=== PATIENT | female | born 1955 | race Caucasian/White ===

== ENCOUNTER → 2025-01-26 08:44 | Outpatient (REF) | payer OTHER, SELFPAY | LOC: HWWDC 08:44 | PROVIDERS: ATTENDING PHYSICIAN Family Medicine | DX: Z12.31 Encounter for screening mammogram for malignant neoplasm of breast (principal) | CPT/HCPCS: 77063; 77067 ==

== ENCOUNTER 2025-09-29 11:22 | Emergency (ER) | payer OTHER, SELFPAY ==
[2025-09-29 11:24] VITALS: BP 150/69
[2025-09-29 12:00] VITALS: BP 130/62
[2025-09-29 12:54] VITALS: BP 130/62; BMI 26.0
[2025-09-29 13:00] VITALS: BP 128/59
[2025-09-29 13:00] LABS: Hematocrit 35.6 % (37.0-47.0); Hemoglobin 11.7 g/dL (12.0-16.0); Mean Corp Hgb Conc. 32.9 g/dL (33.0-37.0); Mean Corpuscular Volume 93.2 fL (81.0-99.0); Nucleated Red Blood Cells % 0 %; Platelet Count 251 10^3/uL (130-400); Red Cell Dist. Width 12.6 % (11.5-14.5)
[2025-09-29 13:20] LABS: ALT (SGPT) 19 U/L (0-35); AST (SGOT) 26 U/L (14-36); Albumin 4.4 g/dl (3.5-5.0); Alkaline Phosphatase 57 U/L (38-126); Blood Urea Nitrogen 29 mg/dl (7-17); Calcium 9.6 mg/dl (8.4-10.2); Carbon Dioxide 27 mmol/L (22-30); Chloride 104 mmol/L (98-107); Estimated Creatinine Clearance 67 ml/min; Glucose 100 mg/dl (70-99); Magnesium 1.6 mg/dl (1.6-2.3); Potassium 4.4 mmol/L (3.5-5.1); Sodium 137 mmol/L (135-145); Total Protein 7.0 g/dl (6.3-8.2); eGFR > 60.00
--- NOTE | 2025-09-29 13:34 | ED.GENMED ---
History of Present Illness
General
Chief Complaint: Heart Rate Problem
Source: patient
Exam Limitations: none
Time Seen by Provider: 09/29/25 11:58
History of Present Illness
History of Present Illness:
Note:
CHIEF COMPLAINT(S)
Palpitations and inability to sleep starting at 3:30 AM.
HISTORY OF PRESENT ILLNESS
The patient is a 70-year-old female who presented with palpitations that began in the middle of the night, prompting her to stay awake from approximately 3:30 AM. The patient described previous episodes but stated they have never lasted as long. She
reported feeling normal at the time of presentation, albeit with a slight flutter experienced while in the facility. The patient has not been diagnosed with any specific arrhythmia previously and has never seen a camera engineer for these symptoms.
Following a conversation with her family doctor, it was recommended that she visit the emergency department for evaluation due to her persistent symptoms.
PAST MEDICAL AND SURGICAL HISTORY
- History of skin cancer.
- Hip replacement surgery.
- Hypertension.
- Hypercholesterolemia.
REVIEW OF SYSTEMS
- Cardiovascular: Palpitations noted, no history of heart attack.
- Neurological: Difficulty sleeping due to palpitations.
PHYSICAL EXAM
General: Alert, no acute distress.
Skin: Warm, dry.
Head: Normocephalic, atraumatic.
Neck: Supple, trachea midline.
Eyes, Ears, Nose, Mouth, and Throat: Oral mucosa moist.
Cardiovascular: Normal peripheral perfusion, no edema, heart rate is 54 bpm, normal electrocardiogram.
Respiratory: Respirations are non-labored, lungs clear to auscultation.
Gastrointestinal: Abdomen nondistended.
Back: Normal range of motion, normal alignment.
Musculoskeletal: Normal range of motion, normal strength.
Neurological: Alert and oriented to person, place, time, and situation, no focal neurological deficit observed.
Psychiatric: Cooperative, appropriate mood and affect.
PLAN
- Comprehensive laboratory tests to check electrolytes, kidney function, and other potential arrhythmia markers.
- Electrocardiogram monitoring while in the facility.
- Referring to cardiology for potential Holter monitor evaluation to assess heart rhythm over an extended period.
DIFFERENTIAL DIAGNOSIS
The Differential Diagnosis includes, in no particular order and is not limited to:
1. Benign palpitations.
2. Atrial fibrillation.
3. Supraventricular tachycardia.
4. Premature ventricular contractions.
5. Anxiety-induced palpitations.
6. Hyperthyroidism.
7. Anemia.
8. Electrolyte imbalances.
9. Medication side effects.
10. Structural heart disease (if further symptoms arise).
EKG
My independent EKG interpretation is:
- Time of EKG: Not specified
- Rhythm: Normal sinus rhythm
- Heart rate: 58 beats per minute
- Start: Normal
- Intervals: Normal
- ST segment changes: None observed
- T wave inversions: Not mentioned
- Arrhythmias: None observed
Disposition:
SUMMARY OF ENCOUNTER
A 70-year-old female presented to the emergency department with episodes of palpitations that prompted her to stay awake from 3:30 AM. She has experienced similar symptoms in the past, though never for as long. Upon presentation, she was stable with
a blood pressure of 130/62 mmHg. Her palpitations were evaluated through blood tests and an electrocardiogram (EKG). She remained in normal sinus rhythm during telemetry monitoring in the emergency department.
DISPOSITION
Discharge
ASSESSMENT
The patient presented with palpitations that may require further cardiovascular evaluation through ambulatory monitoring.
PLAN
The patient is advised to follow up with a camera engineer for possible Holter monitor evaluation to assess her heart rhythm over an extended period.
INDEPENDENT REVIEW OF LABS AND INTERPRETATION OF TESTS
- My independent review of the CBC shows a mild anemia with a hemoglobin level of 11.7.
- My independent review of the CMP is normal.
- My independent EKG interpretation is a normal sinus rhythm.
PATIENT EDUCATION AND COUNSELING
The patient was informed about the non-emergency nature of her symptoms based on current findings. She was counseled on the importance of follow-up with cardiology to explore her symptoms further through potential continuous ambulatory monitoring.
FOLLOW-UP INSTRUCTIONS
Please follow up with a camera engineer as soon as possible for further evaluation and potential Holter monitoring.
MEDICATION RECONCILIATION
No new medications were prescribed or administered during this visit.
MEDICAL DECISION MAKING
- Number and Complexity of Problems Addressed: Chronic conditions affecting care include history of skin cancer, hypertension, hypercholesterolemia, and past episodes of palpitations. Differential diagnoses considered included benign palpitations,
atrial fibrillation, supraventricular tachycardia, premature ventricular contractions, anxiety-induced palpitations, hyperthyroidism, anemia, electrolyte imbalances, medication side effects, and structural heart disease.
- Data:
Category 1: I independently interpreted the EKG which showed normal sinus rhythm. Reviewed laboratory tests include CBC indicating mild anemia and a normal CMP.
- Risk: Consideration of Admission/Observation: Escalation of care including admission/observation was considered given the complexity and risk of the patients presenting complaint. However, ultimately, I feel the patient is safe for outpatient
management with close follow-up. Reasoning: Work-up reassuring, does not reveal any acute life/organ-threatening processes, and patients symptoms are well-controlled upon reevaluation; reexamination is reassuring, vitals are stable, patient is
agreeable with discharge, and reliable for follow-up.
DIAGNOSIS
- Palpitations, unspecified (R00.2)
- Anemia, unspecified (D64.9)
Past History
Social History
Tobacco: Non-smoker
Personal:
Living: with family
Phy Exam
Physical Exam
Physical Exam:
.
Course
Orders/Labs/Results
Orders:
Orders
09/29/25 11:23
EKG [Electrocardiogram (*1)] Urgent
Reason for Study: Palpitations
EKG- Treatment ONCE
09/29/25 12:52
Complete Blood Count/With Diff Urgent
Comprehensive Metabolic Panel Urgent
Magnesium Urgent
TSH Urgent
Abnormal Lab Results
09/29/25
12:52
RBC 3.82 L 10^6/uL
(4.20-5.40)
Hgb 11.7 L g/dL
(12.0-16.0)
Hct 35.6 L %
(37.0-47.0)
MCHC 32.9 L g/dL
(33.0-37.0)
BUN 29 H mg/dl
(7-17)
Glucose 100 H mg/dl
(70-99)
09/29/25 12:52
09/29/25 12:52
Vital Signs
Initial and Last Documented VS:
Initial Vital Signs
Temp Pulse Resp BP Pulse Ox
98.2 F 56 16 150/69 98
09/29/25 11:24 09/29/25 11:24 09/29/25 11:24 09/29/25 11:24 09/29/25 11:24
Last Documented Vital Signs
Temp Pulse Resp BP Pulse Ox
98.2 F 55 18 130/62 96
09/29/25 11:24 09/29/25 12:54 09/29/25 12:54 09/29/25 12:54 09/29/25 12:54
*Pulse Oximetry
SaO2: 96
Oxygen Mode of Delivery: Room air
Patient hypoxic: no
*Critical Care Note
Total Time (30-74mins, 75-104mins- exclusive of procedures): Not Applicable
ED Attending Note
-
Portions of this chart may have been created with voice recognition software.� Occasional wrong word or��sound alike� substitutions may have occurred due to the inherent limitations of voice recognition software.
Discharge Plan
Departure
Patient Disposition: Home (Routine Discharge)
Date of Disposition: 09/29/25
Time of Disposition: 13:35
Patient with high blood pressure during this ER visit?: No
Discharge Problem:
Heart palpitations
Instructions: Palpitations (DC)
Prescriptions:
No Action
metoprolol succinate 100 MG tablet extended release 24 hr
100 mg PO DAILY
quinapril [Accupril] 10 MG tablet
10 mg PO DAILY
simvastatin 20 MG tablet
20 mg PO QPM
hydrochlorothiazide 25 MG tablet
25 mg PO DAILY
cholecalciferol (vitamin D3) [Vitamin D3] 1,000 UNIT tablet
1,000 unit PO QPM
Tylenol Pm
2 tab PO HSPRN PRN (Reason: sleep)
Referrals:
Booker Jauregui MD [Active, Cardiology]
Alyssa Kang MD [Family Provider, Family Practice]
Activity Restrictions/Additional Instructions:
Please see your doctor or cardiology in the next 3 to 5 days for follow-up and reevaluation and to set up a Holter monitor. Return immediately for persistent palpitations, lightheadedness, passing out episode, shortness of breath, chest pain or any
other concerns.
Interventions
Interventions:
*Risk Screen - Suicide Last Done: 09/29/25 11:24
*General Assessment Last Done: 09/29/25 11:24
*Neglect/Abuse Screening Last Done: 09/29/25 11:24
*ED- Fall Risk Assessment Last Done: 09/29/25 12:54
*ED COVID-19 Vaccine History Last Done: 09/29/25 12:54
*ED Influenza Vaccine History Last Done: 09/29/25 12:54
ED- Cardiac Assessment Last Done: 09/29/25 12:54
ED- Pulmonary Assessment Last Done: 09/29/25 12:54
Discharge Date and Time
Print Language: KHMER
[2025-09-29 13:49] LABS: TSH 2.10 uIU/ml (0.47-4.68)
[2025-09-29 14:07] VITALS: BP 125/62
== END 2025-09-29 13:40 | disposition home or self-care (01) ==
LOC: EMR 11:22
PROVIDERS: EMERGENCY PHYSICIAN Emergency Medicine; FAMILY PHYSICIAN Family Medicine
DX: R00.2 Palpitations (principal); D64.9 Anemia, unspecified; E78.00 Pure hypercholesterolemia, unspecified; I10 Essential (primary) hypertension; Z85.828 Personal history of other malignant neoplasm of skin
CPT/HCPCS: 99284; 80053; 83735; 84443; 85025; 93005